=== PATIENT | male | born 2000 | race Caucasian/White ===

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

== ENCOUNTER 2020-07-06 12:26 | Emergency (ER) | payer MEDICAID, OTHER ==
[2020-07-06] MEDS ORDERED: Ativan 2 MG/1 ML VIAL ONE (12:29)
[2020-07-06 12:44] VITALS: BP 142/90; PULSE 76; O2SAT 96
--- NOTE | 2020-07-06 12:56 | ERPHSYRPT ---
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 mother states pt typically has 1-2 seizures a day and this is why they are ordering their sleep study. pt denies pain at this time. Triage Nursing Assessment: pt is aox3, pt speech is clear, appropriate, pupils perrl, afebrile, resps easy and non labored, cap refill < 3 seconds, pt skin pink warm dry. no obvious injury or deformity noted. 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 Per report patient got stiff and went down from a ground-level and did hit his head against the wall on the way down. Seizure activity lasted for almost 10 to 15 seconds and patient was back to his normal afterward. No postictal. Patient mom reports this is quite normal for him. He usually have 1-3 seizures every day. Since this happened in the hospital lobby, he was recommended to be seen in the ER and c-collar was placed in. He denies any neck pain, chest pain palpitations or shortness of breath. 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 Denies numbness tingling or focal weakness. No difficulty speech patient does not want anything to be done and wants to go home. Mom also insist on taking him home as this is normal for him and does not think need any work-up done. He has seen neurology at [facility] but still they are unable to figure out how to control his seizure. Has been taking his medications regularly as recommended, no sleep deprivation, no other new stressors reported. Timing/Duration: today, resolved prior to arrival, sudden, improved Severity: mild Allergies/Adverse Reactions: No Known Drug Allergies Allergy (Verified 07/06/20 12:43) Home Medications: Brivaracetam [Briviact] 100 mg PO BID 01/28/18 [History] Sertraline HCl 100 mg PO DAILY 01/28/18 [History] lamoTRIgine [Lamictal Xr] 50 mg PO DAILY 01/28/18 [History] lamoTRIgine [Lamictal Xr] 300 mg PO DAILY 01/28/18 [History] Hx Tetanus, Diphtheria Vaccination/Date Given: Yes Hx Influenza Vaccination/Date Given: No Hx Pneumococcal Vaccination/Date Given: No Immunizations Up to Date: Yes Travel Risk - International Travel Have you traveled outside of the country in past 3 weeks: No - Coronavirus Screening Close contact with a COVID-19 positive Pt in past 14-21 Days: No - Review of Systems Constitutional: No Symptoms Eyes: No Symptoms Ears, Nose, & Throat: No Symptoms Respiratory: No Symptoms Cardiac: No Symptoms Abdominal/Gastrointestinal: No Symptoms Genitourinary Symptoms: No Symptoms Musculoskeletal: No Symptoms Skin: No Symptoms Neurological: Seizure Psychological: No Symptoms Endocrine: No Symptoms Hematologic/Lymphatic: No Symptoms Immunological/Allergic: No Symptoms - Past Medical History Pertinent Past Medical History: Yes Neurological History: Seizures ENT History: No Pertinent History Cardiac History: No Pertinent History Respiratory History: No Pertinent History Endocrine Medical History: No Pertinent History Musculoskeletal History: No Pertinent History GI Medical History: No Pertinent History History: No Pertinent History Psycho-Social History: No Pertinent History Male Reproductive Disorders: No Pertinent History - Past Surgical History Past Surgical History: Yes Neuro Surgical History: No Pertinent History Other Surgical History: Venous left side - Social History Smoking Status: Current every day smoker How long have you smoked: 2 years Exposure to second hand smoke: No Drug Use: none Patient Lives Alone: No - Nursing Vital Signs Nursing Vital Signs: Initial Vital Signs Temperature 98.0 F 07/06/20 12:27 Pulse Rate 76 07/06/20 12:27 Respiratory Rate 22 07/06/20 12:27 Blood Pressure 142/90 07/06/20 12:27 O2 Sat by Pulse Oximetry 96 07/06/20 12:27 Pain Scale Pain Intensity 0 - [place] Coma Scale Best Eye Response ([place]): (4) open spontaneously Best Verbal Response ([place]): (5) oriented Best Motor Response ([place]): (6) obeys commands [place] Total: 15 - Physical Exam General Appearance: no apparent distress, alert Eye Exam: left eye: abnormal pupil, bilateral eye: normal inspection, EOMI Ears, Nose, Throat Exam: normal ENT inspection, TMs normal, pharynx normal, TM abnormal (L) Neck Exam: normal inspection, non-tender, supple, other (Does not have any midline tenderness or step off deformity. 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 Exam: normal hearing, normal speech, No facial asymmetry, No facial droop Coordination/Gait: normal finger to nose, normal cerebellar function Motor/Sensory: no motor deficit, no sensory deficit, no pronator drift, negative Babinski's sign DTR: bicep (R): 2+, bicep (L): 2+, knee (R): 2+, knee (L): 2+ Skin Exam: normal color, warm SpO2 Interpretation: normal SpO2: 96 O2 Delivery: Room Air - Course EKG Interpreted by Me: RATE (71), Sinus Rhythm, NORMAL AXIS, NORMAL INTERVALS, Non-specific ST Changes Ordered Tests: Medication Summary Discontinued Medications Generic Name Dose Route Start Last Admin Trade Name Carie PRN Reason Stop Dose Admin Lorazepam Confirm 07/06/20 12:29 Ativan 2 Mg/1 Ml Vial Administered 07/06/20 12:30 Dose 2 mg .ROUTE .STK-MED ONE - Progress Progress: improved Progress Note: 07/06/20 13:06 Is back to his baseline after brief seizure episode. Nonfocal neuro exam grossly for any acute findings. EKG normal sinus rhythm. Patient is not in any distress. Lungs bilateral clear to auscultation. Abdomen soft nontender. Recommended CT head/neck and blood work but patient/mother state that this is normal for him and has multiple falls in the past and does not want any imaging or work-up done at all. He stays with the mother and she will keep an eye on him and will bring him back in case it start getting worse. Also refused fluids and blood work. So patient is being discharged at his request and he/mother do understand that risk of leaving without work-up with missing some serious pathology but he still wants to leave. He is being discharged recommended outpatient primary care/neurology follow-up. Discussed signs symptoms of worsening needing return which he/mother seem understanding. Counseled pt/family regarding: need for follow-up - Departure Departure Disposition: Home Clinical Impression: Uncontrolled seizures Qualifiers: Convulsion type: unspecified Qualified Code(s): R56.9 - Unspecified convulsions Condition: Stable Critical Care Time: No Referrals: CAITLYN SWEENEY [Primary Care Provider] - (In 2 days for reevaluation) Instructions: Seizures, Adult (DC) Additional Instructions: Continue with your seizure medications. Follow-up with your neurologist for reevaluation early next week. Return to ER for headache, neck pain, confusion, not acting at baseline, intractable vomiting etc.
== END 2020-07-06 13:10 | disposition home or self-care (01) ==
LOC: ED 12:26
DX: R56.9 Unspecified convulsions (principal); W01.198A Fall on same level from slipping, tripping and stumbling with subsequent striking against other object, initial encounter; Y93.9 Activity, unspecified; Y92.238 Other place in hospital as the place of occurrence of the external cause; Y99.9 Unspecified external cause status
CPT/HCPCS: 36000; 93005; 93041; 95806; 99284; J2060; L0172; G0398